=== PATIENT | male | born 1985 | race Caucasian/White ===

== ENCOUNTER 2017-04-26 18:36 | Emergency (ER) | payer OTHER ==
[~2017-04-26] VITALS: Ht 177.8 cm; Wt 68.4 kg
[2017-04-26 18:51] VITALS: TEMP 37; Ht 177.8 cm; Wt 68.4 kg
[2017-04-26] MEDS ORDERED: DIPHTHERIA/TETANUS/PERTUSSIS 0.5 ML SYR/VIAL IM. ONE (20:15)
[2017-04-26] MEDS ORDERED: GELATIN SPONGE 12-7MM EXT ONE (20:15)
[2017-04-26 20:39] VITALS: BP 136/82; PULSE 61; O2SAT 100
--- NOTE | 2017-04-27 16:12 | EMERGENCY ROOM VISIT NOTE ---
History First contact with patient: 19:57 Chief Complaint: LACERATION/CUT (SUT/DERMABOND) Stated Complaint: LACERATED LT THUMB-WC Nursing Triage Summary: Pt states between [id number] cut the tip of left thumb off with a knife while at work. Unknown last tetanus. Dressing on, unable to visualize in triage. History of Present Illness The patient is a 31 year old male who presents to the Emergency Room with complaints of laceration to his left thumb with a knife while at work approximately 6 or 7 hours ago. The patient bandaged the area, completed his shift, and now presents to the ER for evaluation. The patient states the laceration is still bleeding. He is unsure of his tetanus. He does not report other injury and rates his discomfort a 4/10. Review of Systems More than 10 systems were reviewed and otherwise negative with the exception of history of present illness. Past Medical/Surgical History Medical Problems: (1) Asthma, Unspecified, W (Acute) Exacerbation (2) Concussion Nos (3) Hypertension Nos (4) Tobacco Use Disorder Surgical Problems: (1) History of arthroscopic knee surgery Family History FH: cancer FH: heart disease Social History Smoking Status: Current Every Day Smoker Alcohol Use: occasionally Marital Status: single Housing Status: lives with significant other Occupation Status: employed Current/Historical Medications No Active Prescriptions or Reported Meds Physical Exam Vital Signs Date Time Temp Pulse Resp B/P (MAP) Pulse Ox O2 Delivery O2 Flow Rate FiO2 04/26/17 20:39 61 16 136/82 100 04/26/17 18:51 37.0 59 18 146/83 98 Room Air Pain Rating (0-10): 0 Physical Exam VITALS: Vitals are noted on the nurse's note and reviewed by myself. Vital signs stable. GENERAL: Well-developed, well-nourished, white male, who is in no acute distress and resting comfortably. Patient is cooperative with the examination. HEART: Regular rate and rhythm without murmurs gallops or rubs. LUNGS: Clear to auscultation bilaterally without wheezes, rales or rhonchi. No retractions or accessory muscle use. MUSCULOSKELETAL: There is a fingertip avulsion laceration to the distal end of the left thumb. This appears to have cut through the very distal end of the fingernail, and measures roughly 8 mm in diameter. There is no bony exposure. Minimal bleeding is appreciated. Patient has full sensation and range of motion of the digit otherwise. No other injuries. Medical Decision & Procedures Medications Administered Medications (Trade) Dose Ordered Sig/Erik Route Start Time Stop Time Status Last Admin Dose Admin Diphtheria/ Pertussis/Tetanus Vacc (Adacel Inj) 0.5 ml ONCE ONCE IM. 04/26/17 20:15 04/26/17 20:16 DC 04/26/17 20:17 0.5 ML ED Course Physical exam and history were performed. Nursing notes, EMR, and Medication List were personally reviewed. Patient appears to have suffered a fingertip avulsion with a knife at work earlier today. The area was cleansed and evaluated as above. He does not have significant tissue for formal suture repair. The wound was repaired with Gelfoam and a pressure dressing. His tetanus was updated. The patient was given wound care instructions and asked to follow with Workmen's Compensation for ongoing care. He was otherwise invited back to the ER anytime and voiced understanding. The chart was completed utilizing [employer] Speech Voice Recognition Software. Grammatical errors, random word insertions, pronoun errors, and incomplete sentences are an occasional consequence of this system due to software limitations, ambient noise, and hardware issues. Any formal questions or concerns about the content, text, or information contained within the body of this dictation should be directly addressed to the provider for clarification. . Medical Decision Differential diagnosis includes, but is not limited to: Laceration, abrasion, foreign body, and others Impression Primary Impression: Avulsion, finger tip Departure Information Dispostion Home / Self-Care Condition GOOD Prescriptions No Active Prescriptions or Reported Meds Forms HOME CARE DOCUMENTATION FORM, IMPORTANT VISIT INFORMATION Patient Instructions [facility] Additional Instructions You were seen and evaluated today on an emergency basis only. This is not a substitute for, or an effort to provide, complete comprehensive medical care. It is not possible to recognize and treat all injuries or illnesses in a single emergency department visit. For this reason it is recommended that you followup with your primary care physician with any ongoing or persistent symptoms. Keep the Gelfoam dressing in place for the next 2-3 days. You may replace the dressing if it becomes soiled or guarding. You are welcome to return to the emergency department anytime with new, worsening, or concerning symptoms.
== END 2017-04-26 20:40 | disposition home or self-care (01) ==
LOC: C.EDB 18:38 → C.EDD 20:40
DX: S61.012A Laceration without foreign body of left thumb without damage to nail, initial encounter (principal); W26.0XXA Contact with knife, initial encounter; Y92.89 Other specified places as the place of occurrence of the external cause; Y99.0 Civilian activity done for income or pay; J45.909 Unspecified asthma, uncomplicated; I10 Essential (primary) hypertension; F17.210 Nicotine dependence, cigarettes, uncomplicated; Z80.9 Family history of malignant neoplasm, unspecified; Z82.49 Family history of ischemic heart disease and other diseases of the circulatory system